=== PATIENT | male | born 1935 | race Caucasian/White ===

== ENCOUNTER → 2017-04-21 | Outpatient (CLI) | payer MEDICARE, OTHER ==
[2014-09-27 10:58] VITALS: BP 165/90
[~2017-04-21] MED LIST: ALEN70TA3 PO; ASPI-630 PO; CARV25TA2 PO; CELE200C PO; CETI10TA22 PO; ESOM40CA PO; ESZO3TAB28 PO; FURO20TA3 PO; GABA600T2 PO; LEVO500T59 PO; LORA10TA3 PO; LORA10TA65 PO; MOME17SP NS; OLME40TA12 PO; PRED15SO46 PO; ROPI1TAB2 PO
== END | disposition home or self-care (01) ==
LOC: SURG 10:50
PROVIDERS: ATTEND Anesthesiology Pain Medicine
DX: M54.5 Low back pain (principal); I10 Essential (primary) hypertension; E07.9 Disorder of thyroid, unspecified
CPT/HCPCS: 99205

== ENCOUNTER → 2018-02-09 | Outpatient (CLI) | payer MEDICARE, OTHER ==
[2014-09-27 10:58] VITALS: BP 165/90
--- NOTE | 2018-02-09 16:59 | RAD ---
Bilateral lower extremity venous insufficiency ultrasound exam, 02/09/2018: HISTORY: Bilateral leg swelling Duplex evaluation of the greater saphenous and lesser saphenous veins was performed utilizing Valsalva and compression maneuvers. The greater saphenous veins in the upper thigh are patent and show no evidence of significant reflux on either side. The lesser saphenous veins are also patent without significant reflux. IMPRESSION: No evidence of significant reflux in the greater saphenous or lesser saphenous veins on either side. Electronically signed by: Juarez Renteria MD (02/09/2018 4:56 PM) [facility]
== END | disposition home or self-care (01) ==
LOC: US 13:28 → EDSEX 14:00
PROVIDERS: ATTEND Nurse Practitioner
DX: R60.0 Localized edema (principal)
CPT/HCPCS: 93970

== ENCOUNTER → 2019-10-14 | Outpatient (CLI) | payer MEDICARE, OTHER ==
[2014-09-27 10:58] VITALS: BP 165/90
[~2019-10-14] MED LIST changes: -CETI10TA22 PO; +CETI10TA24 PO; -GABA600T2 PO; +GABA600T7 PO; -ROPI1TAB2 PO; +ROPI1TAB4 PO
--- NOTE | 2019-10-16 16:57 | RAD ---
DATE: 10/14/2019 10:26 AM EXAM: DIGITAL SCREEN BILAT W/CAD HISTORY: Screening COMPARISON: 07/27/2015, 03/29/2018 Bilateral full field craniocaudal and mediolateral oblique images were obtained using digital technique. This study was interpreted with the benefit of Computerized Aided Detection (CAD). FINDINGS: Breast Density: SCATTERED The breast parenchyma shows scattered fibroglandular densities. Breast parenchyma level B No suspicious masses, microcalcifications or architectural distortion is present to suggest malignancy in either breast. The visualized axillae are unremarkable. IMPRESSION: No mammographic evidence of malignancy. BI-RADS CATEGORY: 1 NEGATIVE RECOMMENDED FOLLOW-UP: 12M 12 MONTH FOLLOW-UP Annual screening mammography is recommended, unless clinically indicated sooner based on symptoms or change in physical exam. PQRS compliance statement: Patient information was entered into a reminder system with a target due date for the next mammogram. Mammography is a sensitive method for finding small breast cancers, but it does not detect them all and is not a substitute for careful clinical examination. A negative mammogram does not negate a clinically suspicious finding and should not result in delay in biopsying a clinically suspicious abnormality. "Our facility is accredited by the [employer] Mammography Program."
== END ==
LOC: MAMMO 10:17
PROVIDERS: ATTEND Family Medicine
DX: Z12.31 Encounter for screening mammogram for malignant neoplasm of breast (principal)
CPT/HCPCS: 77067